=== PATIENT | male | born 1970 | race Caucasian/White ===

== ENCOUNTER 2017-08-12 19:41 | Emergency (ER) | payer OTHER ==
[~2017-08-12] VITALS: Ht 185.4 cm; Wt 105.7 kg
[~2017-08-12 19:41] MED LIST: ALBU90OI INH; AMLO10 PO; AMOX1XR PO; AMOX500 PO; CARB100ER; CARB200; CARB200 PO; CLON.1 PO; CLOT1TC TOP; CODACE30 PO; CYCL10 PO; Crutch1 EACH MISC; DULO60 PO; EQ FIBER SUPPLEM2 GM PO; GABA100 PO; GABA300 PO; GEMF600 PO; Guaifenesin Dm118 ML PO; HYDACE5 PO; HYDPAM25 PO; IBUP800 PO; IMIP10; IMIP50 PO; LEVSOD100 PO; LISI20 PO; LOSHYD100 PO; META800 PO; METF500; METF500 PO; METO25ER PO; METO50ER PO; METPRE4DP PO; MIGRAINE RELIE1 EACH PO; NAPR500 PO; NAPR550 PO; OMEP40CA12 PO; ONDA4ODT MM; OXYACE10 PO; OXYACE5T PO; OXYACE7.5T PO; OXYC10ER PO; OXYC15ER PO; OXYC5 PO; PRAV20 PO; PROM25 PO; Percocet 5-3251 EACH PO; Prednisone10 MG PO; Pseudoephedrine30 MG PO; RAME8; RXHYDACE PO; RXNAPNA550 PO; RXOXYACE PO; SULTRIDS PO; TRAM50 PO; TRIHYD5075 PO; Ultram50 MG PO; VERA240ER PO; VERA240ERB
[2017-08-12] MEDS ORDERED: Mobic15 MG PO (20:18)
== END 2017-08-12 20:30 | disposition home or self-care (01) ==
LOC: ER 19:41
DX: M25.561 Pain in right knee (principal); E11.9 Type 2 diabetes mellitus without complications; I10 Essential (primary) hypertension; Z88.8 Allergy status to other drugs, medicaments and biological substances; Z88.5 Allergy status to narcotic agent; Z79.899 Other long term (current) drug therapy; Z79.84 Long term (current) use of oral hypoglycemic drugs; Z90.49 Acquired absence of other specified parts of digestive tract
CPT/HCPCS: 96372; 99283; J1885

== ENCOUNTER 2018-12-03 06:09 | Day surgery (SDC) | payer OTHER ==
[~2018-12-03] VITALS: Ht 180.3 cm; Wt 99.4 kg
[~2018-12-03 06:09] MED LIST changes: +ASPI325 PO; +DICL75ER PO; +IRON PO; +LOSARTAN-HCTZ1 EAC1 PO; +METO100 PO; +Mobic15 MG PO; +OMEPRAZOLE20 MG PO; +Pravachol40 MG PO; +VOLTAREN100 GM TOP
--- NOTE | 2018-12-03 06:51 | NUR ---
History, Chart, Medications and Allergies reviewed before start of procedure. Patient confirms NPO status and agrees with scheduled surgery. Lungs clear T/O to Auscultation. Patient reports completing Chlorhexadine shower X2 prior to admission to hospital. Patient States Post-Procedure ride home has been arranged. Pre-Op teaching done. Pt verbalizes understanding. PATIENT UPON FURHTER QUESTIONING REVEALED THAT HE HAD A CHEW IN HIS RIGHT CHEEK AT THIS TIME. PAITENT ASKED TO REMOVE AND HE COMPLIED. WILL NOTIFY ANESTHESIOLOGIST FOR NPO STATUS.
--- NOTE | 2018-12-03 07:17 | NUR ---
DISCUSSED NPO ISSUE WITH DR FUENTES, WILL POSTPONE PATIENT AND WILL GO SECOND CASE OF THE DAY. INFORMED PATIENT OF RESULT OF DISCUSSION, PATIENT AGREEABLE TO WAIT. STATES HE WAS UNAWARE THAT CHEW WAS NOT ALLOWED. PATIENT GIVEN HEADSET AND REMOTE, COMFORT PROVIDED FOR.
--- NOTE | 2018-12-03 11:09 | NUR ---
PATIENT IMPATIENT FOR THE WAIT, STATES UNCOMFORTABLE AND BORED, OFFERED MULTIPLE TIMES TO REPOSITION OR ASSIST IN SOME WAY, PATIENT REFUSED ASSISTANCE. UPDATED PATIENT WITH INFORMATION ABLE.
--- NOTE | 2018-12-03 11:31 | NUR ---
PER DR FUENTES, REPEATED FINGERSTICK CBG DUE TO DELAY IN SURGICAL TIME FOR NPO. REPEAT RESULT REPORTED TO DR FUENTES. NO FURTHER ORDERS RECEIVED.
--- NOTE | 2018-12-03 14:50 | NUR ---
Discharge instructions reviewed with patient. Patient verbalizes understanding. Copy given to patient to take home. Discharged via wheelchair to private car for ride home. Dressing CDI.
== END 2018-12-03 23:03 | disposition home or self-care (01) ==
LOC: ORSCMMR 06:09 → ORD 07:30 → ORSCMMR 07:30
PROVIDERS: Orthopaedic Surgery
PROC: 0SBC4ZZ Excision of Right Knee Joint, Percutaneous Endoscopic Approach (ICD-10-PCS; principal; 2018-12-03 07:30)
PROC: 0SQC4ZZ Repair Right Knee Joint, Percutaneous Endoscopic Approach (ICD-10-PCS; principal; 2018-12-03 07:30)
DX: M24.10 Other articular cartilage disorders, unspecified site (principal); M23.200 Derangement of unspecified lateral meniscus due to old tear or injury, right knee; M94.261 Chondromalacia, right knee; I10 Essential (primary) hypertension; E11.9 Type 2 diabetes mellitus without complications; Z79.899 Other long term (current) drug therapy; Z79.82 Long term (current) use of aspirin
CPT/HCPCS: 82947; C1713; J0171; J0690; J2250; J2704; J3010; J7120

== ENCOUNTER 2019-12-08 12:16 | Emergency (ER) | payer OTHER ==
[~2019-12-08] VITALS: Ht 185.4 cm; Wt 145.2 kg
[2019-12-08] MEDS ORDERED: NEOPOLHCSU BOTHEARS (13:49)
== END 2019-12-08 14:38 | disposition home or self-care (01) ==
LOC: ER 12:16
DX: H60.91 Unspecified otitis externa, right ear (principal); I10 Essential (primary) hypertension; E11.9 Type 2 diabetes mellitus without complications; J45.909 Unspecified asthma, uncomplicated; E03.9 Hypothyroidism, unspecified; F17.200 Nicotine dependence, unspecified, uncomplicated; Z88.8 Allergy status to other drugs, medicaments and biological substances; Z88.5 Allergy status to narcotic agent; Z79.899 Other long term (current) drug therapy; Z79.82 Long term (current) use of aspirin; Z79.84 Long term (current) use of oral hypoglycemic drugs
CPT/HCPCS: 99282; Q0177

== ENCOUNTER 2019-12-20 17:04 | Emergency (ER) | payer OTHER ==
[~2019-12-20] VITALS: Ht 185.4 cm; Wt 149.7 kg
[~2019-12-20 17:04] MED LIST changes: +NEOPOLHCSU BOTHEARS
[2019-12-20] MEDS ORDERED: FLUT.05NI (19:08)
== END 2019-12-20 19:37 | disposition home or self-care (01) ==
LOC: ER 17:04
DX: H60.91 Unspecified otitis externa, right ear (principal); Z88.5 Allergy status to narcotic agent; Z88.8 Allergy status to other drugs, medicaments and biological substances; Z79.82 Long term (current) use of aspirin; Z79.899 Other long term (current) drug therapy; Z79.84 Long term (current) use of oral hypoglycemic drugs; E11.9 Type 2 diabetes mellitus without complications; I10 Essential (primary) hypertension; J45.909 Unspecified asthma, uncomplicated; E03.9 Hypothyroidism, unspecified; F17.200 Nicotine dependence, unspecified, uncomplicated
CPT/HCPCS: 99282

== ENCOUNTER 2020-01-09 11:44 | Emergency (ER) | payer OTHER ==
[~2020-01-09] VITALS: Ht 185.4 cm; Wt 117.9 kg
[~2020-01-09 11:44] MED LIST changes: +FLUT.05NI
[2020-01-09] MEDS ORDERED: CIPHYDOTSU BOTHEARS (14:39)
== END 2020-01-09 14:52 | disposition home or self-care (01) ==
LOC: ER 11:44
DX: H60.93 Unspecified otitis externa, bilateral (principal); I10 Essential (primary) hypertension; E11.9 Type 2 diabetes mellitus without complications; J45.909 Unspecified asthma, uncomplicated; E03.9 Hypothyroidism, unspecified; F17.200 Nicotine dependence, unspecified, uncomplicated; Z79.82 Long term (current) use of aspirin; Z79.899 Other long term (current) drug therapy; Z79.84 Long term (current) use of oral hypoglycemic drugs
CPT/HCPCS: 99282

== ENCOUNTER 2020-04-04 14:07 | Emergency (ER) | payer OTHER ==
[~2020-04-04] VITALS: Ht 185.4 cm; Wt 117.9 kg
[~2020-04-04 14:07] MED LIST changes: +CIPHYDOTSU BOTHEARS
[2020-04-04] MEDS ORDERED: ACETAMINOPHEN500 MG PO (16:26)
[2020-04-04] MEDS ORDERED: LIDO700A20 TOP (16:26)
[2020-04-04] MEDS ORDERED: DIAZ5 PO (16:26)
[2020-04-04] MEDS ORDERED: IBUP600 PO (16:26)
== END 2020-04-04 16:27 | disposition home or self-care (01) ==
LOC: ER 14:07
DX: G89.29 Other chronic pain (principal); M54.5 Low back pain; F12.90 Cannabis use, unspecified, uncomplicated; E11.9 Type 2 diabetes mellitus without complications; I10 Essential (primary) hypertension; E03.9 Hypothyroidism, unspecified; F17.200 Nicotine dependence, unspecified, uncomplicated; Z79.4 Long term (current) use of insulin; Z88.8 Allergy status to other drugs, medicaments and biological substances; Z88.5 Allergy status to narcotic agent; Z79.82 Long term (current) use of aspirin; Z79.899 Other long term (current) drug therapy
CPT/HCPCS: 99283; A9270-GY

== ENCOUNTER 2020-04-21 14:14 | Emergency (ER) | payer OTHER ==
[~2020-04-21] VITALS: Ht 185.4 cm; Wt 136.1 kg
[~2020-04-21 14:14] MED LIST changes: +ACETAMINOPHEN500 MG PO; +DIAZ5 PO; +IBUP600 PO; +LIDO700A20 TOP
[2020-04-21] MEDS ORDERED: Floxin10 ML BOTHEARS (16:11)
== END 2020-04-21 15:00 | disposition home or self-care (01) ==
LOC: ER 14:14
DX: H60.93 Unspecified otitis externa, bilateral (principal); Z88.8 Allergy status to other drugs, medicaments and biological substances; Z79.899 Other long term (current) drug therapy; Z79.82 Long term (current) use of aspirin; Z79.84 Long term (current) use of oral hypoglycemic drugs
CPT/HCPCS: 99282

== ENCOUNTER 2020-12-04 07:22 | Emergency (ER) | payer OTHER ==
[~2020-12-04] VITALS: Ht 185.4 cm; Wt 136.1 kg
[~2020-12-04 07:22] MED LIST changes: +AMOCLA875 PO; +Floxin10 ML BOTHEARS
[2020-12-04] MEDS ORDERED: PRED20 PO (08:30)
[2020-12-04] MEDS ORDERED: HYDR1TAB94 PO (08:30)
== END 2020-12-04 08:59 | disposition home or self-care (01) ==
LOC: ER 07:22
DX: M54.16 Radiculopathy, lumbar region (principal); I10 Essential (primary) hypertension; E11.9 Type 2 diabetes mellitus without complications; F17.220 Nicotine dependence, chewing tobacco, uncomplicated; Z79.84 Long term (current) use of oral hypoglycemic drugs; Z79.899 Other long term (current) drug therapy; Z88.8 Allergy status to other drugs, medicaments and biological substances
CPT/HCPCS: 72100; 99283-25; A9270

== ENCOUNTER 2020-12-08 10:27 | Emergency (ER) | payer OTHER ==
[~2020-12-08] VITALS: Ht 185.4 cm; Wt 136.1 kg
[~2020-12-08 10:27] MED LIST changes: +HYDR1TAB94 PO; +PRED20 PO
== END 2020-12-08 11:37 | disposition home or self-care (01) ==
LOC: ER 10:27
DX: G89.29 Other chronic pain (principal); M54.5 Low back pain; E11.9 Type 2 diabetes mellitus without complications; I10 Essential (primary) hypertension; F17.220 Nicotine dependence, chewing tobacco, uncomplicated; F17.200 Nicotine dependence, unspecified, uncomplicated; Z88.8 Allergy status to other drugs, medicaments and biological substances; Z79.899 Other long term (current) drug therapy
CPT/HCPCS: 96372; 99283-25; J1100; J1885

== ENCOUNTER 2021-06-03 10:47 | Emergency (ER) | payer OTHER ==
[~2021-06-03] VITALS: Ht 185.4 cm; Wt 136.1 kg
[2021-06-03] MEDS ORDERED: CIPROFLOX-DEXA7.5 ML BOTHEARS (11:09)
== END 2021-06-03 11:16 | disposition home or self-care (01) ==
LOC: ER 10:47
DX: H92.03 Otalgia, bilateral (principal); G89.29 Other chronic pain; F17.220 Nicotine dependence, chewing tobacco, uncomplicated; I10 Essential (primary) hypertension; E11.9 Type 2 diabetes mellitus without complications; Z88.8 Allergy status to other drugs, medicaments and biological substances; Z79.899 Other long term (current) drug therapy; Z79.82 Long term (current) use of aspirin
CPT/HCPCS: 99282

== ENCOUNTER 2021-07-22 14:43 | Emergency (ER) | payer OTHER ==
[~2021-07-22] VITALS: Ht 185.4 cm; Wt 145.2 kg
[~2021-07-22 14:43] MED LIST changes: +CIPROFLOX-DEXA7.5 ML BOTHEARS
== END 2021-07-22 20:31 | disposition home or self-care (01) ==
LOC: ER 14:43
DX: S06.0X0A Concussion without loss of consciousness, initial encounter (principal); E11.9 Type 2 diabetes mellitus without complications; I10 Essential (primary) hypertension; F17.220 Nicotine dependence, chewing tobacco, uncomplicated; Z79.82 Long term (current) use of aspirin; Z79.899 Other long term (current) drug therapy; W01.0XXA Fall on same level from slipping, tripping and stumbling without subsequent striking against object, initial encounter
CPT/HCPCS: 70450; 72125; 99284-25

== ENCOUNTER 2022-02-19 20:01 | Emergency (ER) | payer OTHER ==
[~2022-02-19] VITALS: Ht 182.9 cm; Wt 117.5 kg
== END 2022-02-19 23:57 | disposition home or self-care (01) ==
LOC: ER 20:01
DX: M25.521 Pain in right elbow (principal); I10 Essential (primary) hypertension; E11.9 Type 2 diabetes mellitus without complications; F17.200 Nicotine dependence, unspecified, uncomplicated; Z79.899 Other long term (current) drug therapy; Z79.82 Long term (current) use of aspirin; Z79.84 Long term (current) use of oral hypoglycemic drugs; X50.1XXA Overexertion from prolonged static or awkward postures, initial encounter
CPT/HCPCS: 73080

== ENCOUNTER → 2023-02-08 | Outpatient (CLI) | payer OTHER ==
[2023-02-08 19:06] LABS: BASOPHILS ABSOLUTE AUTO 0.04 K/mm3 (0.00-0.23); BASOPHILS PERCENT AUTO 1 % (0-2); EOSINOPHILS ABSOLUTE AUTO 0.07 K/mm3 (0.00-0.68); EOSINOPHILS PERCENT AUTO 1 % (0-6); Hematocrit 42.2 % (37.0-53.0); Hemoglobin 14.4 g/dL (13.5-17.5); IMMATURE GRAN ABSOLUTE AUTO 0.02 K/mm3 (0.00-0.10); IMMATURE GRAN PERCENT AUTO 0 % (0-1); LYMPHOCYTES PERCENT AUTO 35 % (21-46); MONOCYTES ABSOLUTE AUTO 0.58 K/mm3 (0.16-1.47); MONOCYTES PERCENT AUTO 10 % (4-13); Mean Corpuscular HGB 30.4 pg (26.0-34.0); Mean Corpuscular HGB Conc 34.1 g/dL (31.5-36.5); Mean Corpuscular Volume 89 fL (80-100); Mean Platelet Volume 9.7 fL (9.1-12.4); NEUTROPHILS ABSOLUTE AUTO 3.25 K/mm3 (1.96-9.15); NEUTROPHILS PERCENT AUTO 54 % (41-73); Platelet Count 312 K/mm3 (150-400); RDW Coefficient Variation 13.2 % (11.7-14.2); Red Blood Cell Count 4.73 M/mm3 (4.30-5.90); White Blood Cell Count 6.06 K/mm3 (4.00-11.30)
[2023-02-08 19:26] LABS: Alanine Aminotransfer (ALT/SGP 31 U/L (12-78); Albumin, Blood 4.2 g/dL (3.4-5.0); Albumin/Globulin Ratio 1.1 (0.8-1.8); Alk Phos 94 U/L (50-136); Anion Gap 7 mmol/L (6-16); Aspartate Aminotrans (AST/SGOT 13 U/L (12-37); Bilirubin, Total 0.4 mg/dL (0.1-1.0); Blood Urea Nitrogen 9 mg/dL (8-24); Bun/Creatinine Ratio 12.9 (12.0-20.0); CHOL/HDL RATIO 5.6; CO2, Blood 29 mmol/L (21-32); Calcium, Blood 9.7 mg/dL (8.5-10.1); Chloride, Blood 101 mmol/L (98-108); Cholesterol 280 mg/dL (50-200); Globulin, Blood 3.8 g/dL (2.2-4.0); Glomerular Filtration Rate 110 (60-); Glucose, Blood 108 mg/dL (70-99); HDL Cholesterol 50 mg/dL (>39); LDL/HDL RATIO 3.8; Low Density Lipoprotein Chol 191 mg/dL (0-110); Potassium, Blood 3.5 mmol/L (3.5-5.5); Sodium, Blood 137 mmol/L (136-145); Triglycerides 195 mg/dL (30-160); Very Low Density Lipoprot Chol 39 mg/dL (6-32)
== END ==
LOC: LAB SHORT 15:58 → LAB 15:58
PROVIDERS: Nurse Practitioner Family
DX: Z13.0 Encounter for screening for diseases of the blood and blood-forming organs and certain disorders involving the immune mechanism (principal); E11.9 Type 2 diabetes mellitus without complications; I10 Essential (primary) hypertension; E78.5 Hyperlipidemia, unspecified
CPT/HCPCS: 80053; 80061; 83036; 85025

== ENCOUNTER → 2023-06-11 | Outpatient (CLI) | payer OTHER | END | disposition home or self-care (01) | LOC: LAB 16:43 → LAB SHORT 16:43 | DX: R13.19 Other dysphagia (principal) | CPT/HCPCS: 87081 ==

== ENCOUNTER 2024-04-25 14:31 | Emergency (ER) | payer OTHER ==
[~2024-04-25] VITALS: Ht 185.4 cm; Wt 108.9 kg
[~2024-04-25 14:31] MED LIST changes: +ACET500 PO; +ASPI81CH PO; +ATOR80 PO; +CATAPRES-TTS 11 EAC1 TOP; +MEMA10 PO; +OMEP20ER PO; -OMEPRAZOLE20 MG PO
[2024-04-25 14:41] VITALS: BP 151/86
== END 2024-04-25 16:50 | disposition home or self-care (01) ==
LOC: ER 14:31
DX: S86.911A Strain of unspecified muscle(s) and tendon(s) at lower leg level, right leg, initial encounter (principal); I10 Essential (primary) hypertension; E11.9 Type 2 diabetes mellitus without complications; F17.220 Nicotine dependence, chewing tobacco, uncomplicated; X50.9XXA Other and unspecified overexertion or strenuous movements or postures, initial encounter
CPT/HCPCS: 73562-RT; 99283-25

== ENCOUNTER 2024-08-08 10:02 | Day surgery (SDC) | payer OTHER ==
[~2024-08-08] VITALS: Ht 175.3 cm; Wt 114.6 kg
[~2024-08-08 10:02] MED LIST changes: +Atropine Sulfate 0.1 MG/ML 10ML SYR ONE; +Glycopyrrolate 0.2 MG/ML 1MLVIAL ONE; +Lactated Ringer's 1,000 ML IV ONE; +Lidocaine 2% 5 ML SDV ONE; +Lidocaine HCl/Pf 1% 5 ML VIAL ONE; +Methylene Blue 1% 100 MG/10 ML VIAL ONE; +Ondansetron HCl 2 MG / ML 2ML Vial ONE; +ePHEDrine Sulfate 50 MG/ML 1ML Injection ONE
[2024-08-08] MEDS ORDERED: Lidocaine HCl 4% 5 ML SDA ONE (10:30)
[2024-08-08] MEDS ORDERED: ACET500 (10:45)
[2024-08-08] MEDS ORDERED: 1/2 NS 250ml250 ML (10:46)
[2024-08-08] MEDS ORDERED: GABA300 (10:46)
[2024-08-08] MEDS ORDERED: CARB200ER (10:46)
[2024-08-08] MEDS ORDERED: IBUP800 (10:46)
--- NOTE | 2024-08-08 11:39 | NUR ---
08/08/24 1139 Azalia Wetzel PT. VERBALIZES HAVING RIGHT KNEE PAIN RATING "5". PT. VERBALIZES HAVING A TOTAL KNEE SURGERY 11 MONTHS AGO.
[2024-08-08] MEDS ORDERED: Lactated Ringer's 1,000 ML IV ONE (11:40)
[2024-08-08] MEDS ORDERED: propofoL 100 ML IV ONE (11:57)
[2024-08-08 15:03] VITALS: BP 126/94
== END 2024-08-08 13:46 | disposition home or self-care (01) ==
LOC: ORSCSDS 10:02
PROVIDERS: Internal Medicine Gastroenterology
PROC: 0DBP8ZX Excision of Rectum, Via Natural or Artificial Opening Endoscopic, Diagnostic (ICD-10-PCS; principal; 2024-08-08 11:45)
PROC: 0DBM8ZX Excision of Descending Colon, Via Natural or Artificial Opening Endoscopic, Diagnostic (ICD-10-PCS; principal; 2024-08-08 11:45)
PROC: 0DBL8ZX Excision of Transverse Colon, Via Natural or Artificial Opening Endoscopic, Diagnostic (ICD-10-PCS; principal; 2024-08-08 11:45)
PROC: 0DBN8ZX Excision of Sigmoid Colon, Via Natural or Artificial Opening Endoscopic, Diagnostic (ICD-10-PCS; principal; 2024-08-08 11:45)
PROC: 0DJ08ZZ Inspection of Upper Intestinal Tract, Via Natural or Artificial Opening Endoscopic (ICD-10-PCS; principal; 2024-08-08 11:45)
DX: K62.5 Hemorrhage of anus and rectum (principal); R09.A2 Foreign body sensation, throat; K21.9 Gastro-esophageal reflux disease without esophagitis; D12.3 Benign neoplasm of transverse colon; D12.4 Benign neoplasm of descending colon; D12.5 Benign neoplasm of sigmoid colon; K63.5 Polyp of colon; K59.09 Other constipation; K64.4 Residual hemorrhoidal skin tags; K64.8 Other hemorrhoids; I10 Essential (primary) hypertension; E78.5 Hyperlipidemia, unspecified; J45.909 Unspecified asthma, uncomplicated; E11.9 Type 2 diabetes mellitus without complications; E03.9 Hypothyroidism, unspecified; F41.9 Anxiety disorder, unspecified; Z79.84 Long term (current) use of oral hypoglycemic drugs; Z79.899 Other long term (current) drug therapy; E66.9 Obesity, unspecified; Z68.37 Body mass index [BMI] 37.0-37.9, adult
CPT/HCPCS: 82947; 88305; J0461; J2003; J2405; J2704; J7120; Q9968